=== PATIENT | male | born 1965 | race Caucasian/White ===

== ENCOUNTER 2024-04-01 11:19 | Emergency (ER) | payer SELFPAY ==
[~2024-04-01] VITALS: Ht 177.8 cm; Wt 77.0 kg
[2024-04-01 11:23] VITALS: O2SAT 97
[2024-04-01] MEDS: NITROGLYCERIN 0.4MG TABLET SL SL ONE (12:07)
[2024-04-01] MEDS: ASPIRIN 81MG TABLET PO ONE (12:07)
[2024-04-01 12:29] LABS: CHLORIDE 110 mEq/L (98-107); INR 1.1; PROTHROMBIN TIME 11.9 sec (9.6-11.0); SODIUM 142 mEq/L (136-145)
[2024-04-01 12:30] LABS: CALCIUM 9.7 mg/dL (8.7-10.4); CARBON DIOXIDE 26 mEq/L (21-32)
[2024-04-01 12:35] LABS: CREATININE 0.9 mg/dL (0.6-1.3); GLUCOSE 108 mg/dL (70-105); UREA NITROGEN BLOOD 12 mg/dL (9-23)
[2024-04-01 12:38] LABS: BASOPHILS % 0.9 % (0.0-2.0); EOSINOPHILS % 1.4 % (0.0-5.0); HEMATOCRIT. 41.5 % (42.0-52.0); LYMPHOCYTES % 16.1 % (20.0-50.0); MEAN CORPUSCULAR HGB CONC 33.8 g/dL (31.0-37.0); MEAN CORPUSCULAR VOLUME 91.9 fL (80.0-94.0); MEAN PLATELET VOLUME 8.6 fl (7.4-10.4); MONOCYTES % 5.8 % (2.0-8.0); NEUTROPHILS % 75.8 % (40.0-76.0); PLATELET 225 x1000/uL (130-400); RED BLOOD CELL COUNT 4.51 mill/uL (4.7-6.1); RED CELL DISTRIBUTION WIDTH 13.1 % (11.6-14.6); WHITE BLOOD COUNT 6.5 x1000/uL (4.5-11.0)
[2024-04-01 12:46] LABS: TROPONIN I HIGH SENSITIVITY < 4 ng/L (3.0-53)
[2024-04-01 14:28] LABS: CLARITY URINE CLEAR (CLEAR); COLOR URINE YELLOW (YELLOW); GLUCOSE URINE NEGATIVE (NEGATIVE); KETONES URINE NEGATIVE (NEGATIVE); LEUKOCYTE ESTERASE URINE NEGATIVE (NEGATIVE); NITRITE URINE NEGATIVE (NEGATIVE); OCCULT BLOOD URINE NEGATIVE (NEGATIVE); PROTEIN URINE NEGATIVE (NEGATIVE); SPECIFIC GRAVITY URINE 1.009 (1.005-1.030); UROBILINOGEN URINE 0.2 E.U./dL (0.2-1.0)
[2024-04-01 14:50] LABS: TROPONIN I HIGH SENSITIVITY < 4 ng/L (3.0-53)
[2024-04-01 16:12] VITALS: TEMP 36.44736
[2024-04-01 17:50] VITALS: BP 147/84; PULSE 61; RESP 17; O2SAT 99
[2024-04-01] MEDS ORDERED: ATORVASTATIN CALCIUM 40MG TABLET PO SCH (21:00)
[2024-04-02] MEDS ORDERED: ASPIRIN 81MG TABLET PO SCH (09:00)
== END 2024-04-01 18:29 | disposition home or self-care (01) ==
LOC: ER 11:29
DX: R07.89 Other chest pain (principal); F19.90 Other psychoactive substance use, unspecified, uncomplicated; Z79.899 Other long term (current) drug therapy
CPT/HCPCS: 80048; 81003; 83880; 85025; 85610; 84484; 36415; 71045; 93005; 99285; Z7610

== ENCOUNTER 2025-03-11 08:46 | Emergency (ER) | payer MEDICAID ==
[~2025-03-11] VITALS: Ht 182.9 cm; Wt 114.0 kg
[2025-03-11 08:48] VITALS: O2SAT 100
[2025-03-11] MEDS: LIDOCAINE HCL/EPINEPHRINE 1%-EPI 1:100,000 20ML VIAL INFIL ONE (10:06)
[2025-03-11] MEDS ORDERED: IBUP-2028 MT (10:36)
[2025-03-11] MEDS ORDERED: BO1 TP (10:36)
[2025-03-11] MEDS ORDERED: CEPH500C2 MT (10:36)
[2025-03-11 11:00] VITALS: BP 141/90; PULSE 58; RESP 16; TEMP 36.7; O2SAT 100
== END 2025-03-11 11:10 | disposition home or self-care (01) ==
LOC: ER 08:46
DX: L02.412 Cutaneous abscess of left axilla (principal); I10 Essential (primary) hypertension; Z79.899 Other long term (current) drug therapy
CPT/HCPCS: 10060; 99283; J2004; Z7610

== ENCOUNTER 2025-03-15 08:26 | Emergency (ER) | payer MEDICAID ==
[~2025-03-15] VITALS: Ht 185.4 cm; Wt 113.0 kg
[~2025-03-15 08:26] MED LIST: BO1 TP; CEPH500C2 MT; IBUP-2028 MT
[2025-03-15 08:43] VITALS: TEMP 36.9; O2SAT 100
[2025-03-15] MEDS: LIDOCAINE HCL 1% 20ML VIAL INFIL ONE (09:09)
[2025-03-15] MEDS: IBUPROFEN 600MG TABLET PO ONE (09:09)
[2025-03-15 11:19] VITALS: BP 163/91; PULSE 58; RESP 16; O2SAT 100
== END 2025-03-15 11:20 | disposition home or self-care (01) ==
LOC: ER 08:26
DX: L02.213 Cutaneous abscess of chest wall (principal)
CPT/HCPCS: 99283; 10060; J2003